=== PATIENT | female | born 1960 | race Caucasian/White ===

== ENCOUNTER → 2016-10-14 | Outpatient (CLI) | payer BC ==
[2013-07-25 16:00] VITALS: BP 125/78
--- NOTE | 2016-10-15 15:29 | MG ---
HISTORY: SCREENING Comparison: Multiple priors dating back to November 15, 2012 FINDINGS: Bilateral CC and MLO projections of the right and left breast were obtained utilizing both full-fiel d and push back techniques. Heterogeneously dense fibroglandular tissue is seen to be present witho ut significant interval change. No suspicious architectural distortion, mass or clustered microcalc ifications can be observed to suggest malignancy. No skin thickening or nipple retraction is apprec iated. No pathological lymphadenopathy can be identified. Benign-appearing calcifications are note d within the right and left breast. There are bilateral subglandular silicone implants which appear grossly intact. IMPRESSION: NO RADIOGRAPHIC EVIDENCE OF MALIGNANCY. ACR CATEGORY 2 - benign findings. FOLLOW-UP EXAM 1 YEAR. Diagnostic CAD was utilized and reviewed. * 0 (ZERO) - ASSESSMENT INCOMPLETE; ADDITIONAL IMAGING IS NEEDED. * 1/1 (ONE) - NEGATIVE. * 2/II (TWO) - BENIGN FINDINGS. * 3/III (THREE) - PROBABLY BENIGN FINDING; SHORT INTERVAL FOLLOW-UP SUGGESTED. * 4/IV (FOUR) - SUSPICIOUS ABNORMALITY; BIOPSY SHOULD BE CONSIDERED. * 5/V (FIVE) - HIGHLY SUSPICIOUS OF MALIGNANCY; BIOPSY SHOULD BE PERFORMED. A NEGATIVE X-RAY REPORT SHOULD NOT DELAY BIOPSY IF A DOMINANT OR CLINICALLY SUSPICIOUS MASS IS PRESENT; 4 TO 8 PERCENT OF CANCERS ARE NOT IDENTIFIED BY X-RAY. A NEG ATIVE REPORT MAY REINFORCE THE CLINICAL IMPRESSION. ADENOSIS AND DENSE BREASTS MAY OBSCURE AN UNDER LYING NEOPLASM. Reported By:
== END | disposition home or self-care (01) ==
LOC: RAD 12:05
PROVIDERS: ATTEND Specialist
DX: Z12.31 Encounter for screening mammogram for malignant neoplasm of breast (principal)
CPT/HCPCS: 77067

== ENCOUNTER → 2016-10-15 | Outpatient (CLI) | payer BC ==
[2013-07-25 16:00] VITALS: BP 125/78
[~2016-10-15] MED LIST: NS 100 ML IV 100 ML IV ONE
[2016-10-15 08:29] LABS: CREATININE 0.79 mg/dL (0.55-1.02)
--- NOTE | 2016-10-15 09:45 | CT ---
HISTORY: Follow up pulmonary nodule Study: CT chest with contrast Comparison: February 05, 2016 Technique: Axial post-contrast images with coronal and sagittal reformats. Dose reduction procedures were used with MA/kv adjusted for body size. Findings: Examination of the mediastinum demonstrated no evidence for mediastinal masses, lymphadenopathy, or hilar lymphadenopathy. No pleural effusions are identified. No chest wall or axillary abnormality is identified. Those portions of the upper abdominal organs visualized were within normal limits. Exam ination of the lung holguin demonstrated no alveolar infiltrates, areas of consolidation, peribronchi al thickening, or bronchiectasis. There is a stable 5 millimeter subpleural left lower lobe pulmonar y nodule best visualized on series 5, image 32. Follow up examination in 6 months is recommended to assess for stability. No new nodules are identified. IMPRESSION: Stable 5 millimeter subpleural left lower lobe pulmonary nodule which will require follow up until 2 years stability has been reached. Reported By:
== END ==
LOC: RAD 07:56
PROVIDERS: ATTEND Specialist
DX: R93.8 Abnormal findings on diagnostic imaging of other specified body structures (principal)
CPT/HCPCS: 36415; 71260; 82565; 84520; A4222